=== PATIENT | male | born 1990 | race American Indian/Alaskan Native ===

== ENCOUNTER 2021-04-02 11:09 | Emergency (ER) | payer SELFPAY ==
[2021-04-02 11:34] VITALS: BP 124/66
--- NOTE | 2021-04-02 12:12 | XRay Report ---
CHEST 2 VIEWS INDICATION: Chest Pain. COMPARISON: none FINDINGS: Support devices: None. Heart: Within normal limits. Lungs/pleura: No acute air space or interstitial disease. No pneumothorax. Additional findings: None. IMPRESSION: No acute findings. Signer Name: Panchito Nichole Jr, MD Signed: 04/02/2021 12:07 PM Workstation Name: [id number]
[2021-04-02 13:12] LABS: Basophils % (Auto) 0.6 % (0.0-1.8); Eosinophils # (Auto) 0.1 K/mm3 (0.0-0.4); Eosinophils % (Auto) 1.2 % (0.0-4.3); Hematocrit 40.1 % (35.5-45.6); Hemoglobin 13.4 gm/dl (11.8-15.2); Lymphocytes # (Auto) 2.2 K/mm3 (1.2-5.4); Mean Corpuscular HGB Conc 33 % (32-34); Mean Corpuscular Volume 91 fl (84-94); Monocytes # (Auto) 0.6 K/mm3 (0.0-0.8); Monocytes % (Auto) 10.9 % (0.0-7.3); Platelet Count 167 K/mm3 (140-440); Red Blood Count 4.42 M/mm3 (3.65-5.03); Red Cell Distribution Width 13.5 % (13.2-15.2)
[2021-04-02 13:29] LABS: INR 0.92 (0.87-1.13); Partial Thromboplastin Time 27.6 Sec. (24.2-36.6)
[2021-04-02 13:36] LABS: Alanine Aminotransferase 12 units/L (7-56); Albumin 4.3 g/dL (3.9-5); BUN/Creatinine Ratio 5; Blood Urea Nitrogen 7 mg/dL (9-20); Calcium 8.9 mg/dL (8.4-10.2); Hemolysis Index 112
--- NOTE | 2021-04-02 14:04 | Emergency Department Report ---
ED Chest Pain HPI - General Chief Complaint: Chest Pain Stated Complaint: CHEST PAIN Time Seen by Provider: 04/02/21 11:33 Source: patient Mode of arrival: Ambulatory Limitations: No Limitations - History of Present Illness Initial Comments: This is a 30-year-old male nontoxic, well nourished in appearance, no acute signs of distress presents to the ED with c/o of intermittent right sided chest pain x2 weeks. Currently patient denies any symptoms or complaints. Patient denies any radiation of pain. Patient describes pain as aching intermittently and worse with movement. Patient denies any upper respiratory symptoms. Patient denies any shortness of breath, hemoptysis, fever, chills, nausea, vomiting, headache, stiff neck, numbness, tingling, abdominal pain. Patient denies pleuritic chest pain. Patient denies any recent travels or long car rides. Patient denies any recent surgeries or any sick contacts. Patient denies any drug allergies or significant past medical history. Patient states has is Covid vaccine MD Complaint: chest pain -: week(s) Pain Location: right chest Pain Radiation: none Severity: mild Severity scale (0 -10): 3 Quality: aching Consistency: intermittent, now resolved Improves With: rest Worsens With: movement re: denies: nausea, vomting, diaphoresis, dyspnea, sense of impending doom Other Symptoms: denies: cough, fever, syncope, rash, acid taste in mouth, leg swelling, palpitations, burping Treatments Prior to Arrival: none Aspirin use within the Past 7 Days: (0) No - Related Data Allergies Allergy/AdvReac Type Severity Reaction Status Date / Time No Known Allergies Allergy Unverified 04/02/21 11:27 Heart Score - HEART Score History: Slightly suspicious EKG: Normal Age: < 45 Risk factors: No known risk factors Troponin: < normal limit HEART Score: 0 - EKG Read Time Time EKG Completed: 11:38 EKG Read Time: 11:42 (read by Nica Chen ) - Critical Actions Critical Actions: 0-3 pts:0.9-1.7%risk of adverse cardiac event.Candidate for discharge ED Review of Systems ROS: Stated complaint: CHEST PAIN Other details as noted in HPI Comment: All other systems reviewed and negative Constitutional: denies: chills, fever Eyes: denies: eye pain, eye discharge, vision change ENT: denies: ear pain, throat pain Respiratory: denies: cough, shortness of breath, wheezing Cardiovascular: chest pain. denies: palpitations, dyspnea on exertion, orthopnea, edema, syncope, paroxysmal nocturnal dyspnea Endocrine: no symptoms reported Gastrointestinal: denies: abdominal pain, nausea, diarrhea Genitourinary: denies: urgency, dysuria Musculoskeletal: denies: back pain, joint swelling, arthralgia Skin: denies: rash, lesions Neurological: denies: headache, weakness, paresthesias Psychiatric: denies: anxiety, depression Hematological/Lymphatic: denies: easy bleeding, easy bruising ED Past Medical Hx - Past Medical History Previous Medical History?: No - Surgical History Past Surgical History?: No ED Physical Exam - General Limitations: No Limitations General appearance: alert, in no apparent distress - Head Head exam: Present: atraumatic, normocephalic - Eye Eye exam: Present: normal appearance - Neck Neck exam: Present: normal inspection, full ROM. Absent: lymphadenopathy - Respiratory Respiratory exam: Present: normal lung sounds bilaterally. Absent: respiratory distress, wheezes, rales, rhonchi, stridor, chest wall tenderness, accessory muscle use, decreased breath sounds, prolonged expiratory - Cardiovascular Cardiovascular Exam: Present: regular rate, normal rhythm, normal heart sounds. Absent: bradycardia, tachycardia, irregular rhythm, systolic murmur, diastolic murmur, rubs, gallop - GI/Abdominal GI/Abdominal exam: Present: soft, normal bowel sounds. Absent: distended, tenderness, guarding, rebound, rigid, diminished bowel sounds - Extremities Exam Extremities exam: Present: normal inspection, full ROM, normal capillary refill. Absent: tenderness, pedal edema, joint swelling - Back Exam Back exam: Present: normal inspection, full ROM. Absent: tenderness, CVA tenderness (R), CVA tenderness (L), muscle spasm, paraspinal tenderness, vertebral tenderness, rash noted - Neurological Exam Neurological exam: Present: alert, oriented X3, normal gait - Psychiatric Psychiatric exam: Present: normal affect, normal mood - Skin Skin exam: Present: warm, dry, intact, normal color. Absent: rash ED Course Vital Signs 04/02/21 11:33 Temperature 99.2 F Pulse Rate 83 Respiratory 20 Rate Blood Pressure 124/66 O2 Sat by Pulse 96 Oximetry - Reevaluation(s) Reevaluation #1: 08/23/21 14:05 Patient is speaking in full sentences with no signs of distress noted. SHADE score - Shade Score Age > 65: (0) No Aspirin use within the Past 7 Days: (0) No 3 or more CAD Risk Factors: (0) No 2 or more Angina events in past 24 hrs: (0) No Known CAD with more than 50% Stenosis: (0) No Elevated Cardiac Markers: (0) No ST Deviation Greater than 0.5mm: (0) No SHADE Score: 0 ED Medical Decision Making - Lab Data Result diagrams: 04/02/21 12:56 04/02/21 12:56 Lab Results 04/02/21 04/02/21 04/02/21 Range/Units 12:56 12:56 12:56 WBC 5.5 (4.5-11.0) K/mm3 RBC 4.42 (3.65-5.03) M/mm3 Hgb 13.4 (11.8-15.2) gm/dl Hct 40.1 (35.5-45.6) % MCV 91 (84-94) fl MCH 30 (28-32) pg MCHC 33 (32-34) % RDW 13.5 (13.2-15.2) % Plt Count 167 (140-440) K/mm3 Lymph % (Auto) 40.0 H (13.4-35.0) % Meagher % (Auto) 10.9 H (0.0-7.3) % Eos % (Auto) 1.2 (0.0-4.3) % Baso % (Auto) 0.6 (0.0-1.8) % Lymph # (Auto) 2.2 (1.2-5.4) K/mm3 Meagher # (Auto) 0.6 (0.0-0.8) K/mm3 Eos # (Auto) 0.1 (0.0-0.4) K/mm3 Baso # (Auto) 0.0 (0.0-0.1) K/mm3 Seg Neutrophils % 47.3 (40.0-70.0) % Seg Neutrophils # 2.6 (1.8-7.7) K/mm3 PT 12.9 (12.2-14.9) Sec. INR 0.92 (0.87-1.13) APTT 27.6 (24.2-36.6) Sec. Sodium 139 (137-145) mmol/L Potassium 4.6 (3.6-5.0) mmol/L Chloride 104.0 (98-107) mmol/L Carbon Dioxide 24 (22-30) mmol/L Anion Gap 16 mmol/L BUN 7 L (9-20) mg/dL Creatinine 1.3 (0.8-1.3) mg/dL Estimated GFR > 60 ml/min BUN/Creatinine Ratio 5 % Glucose 88 (75-100) mg/dL Calcium 8.9 (8.4-10.2) mg/dL Total Bilirubin 0.50 (0.1-1.2) mg/dL AST 22 (5-40) units/L ALT 12 (7-56) units/L Alkaline Phosphatase 72 (35-129) units/L Troponin T < 0.010 (0.00-0.029) ng/mL Total Protein 7.4 (6.3-8.2) g/dL Albumin 4.3 (3.9-5) g/dL Albumin/Globulin Ratio 1.4 % // Range/Units 14:55 WBC (4.5-11.0) K/mm3 RBC (3.65-5.03) M/mm3 Hgb (11.8-15.2) gm/dl Hct (35.5-45.6) % MCV (84-94) fl MCH (28-32) pg MCHC (32-34) % RDW (13.2-15.2) % Plt Count (140-440) K/mm3 Lymph % (Auto) (13.4-35.0) % Meagher % (Auto) (0.0-7.3) % Eos % (Auto) (0.0-4.3) % Baso % (Auto) (0.0-1.8) % Lymph # (Auto) (1.2-5.4) K/mm3 Meagher # (Auto) (0.0-0.8) K/mm3 Eos # (Auto) (0.0-0.4) K/mm3 Baso # (Auto) (0.0-0.1) K/mm3 Seg Neutrophils % (40.0-70.0) % Seg Neutrophils # (1.8-7.7) K/mm3 PT (12.2-14.9) Sec. INR (0.87-1.13) APTT (24.2-36.6) Sec. Sodium (137-145) mmol/L Potassium (3.6-5.0) mmol/L Chloride (98-107) mmol/L Carbon Dioxide (22-30) mmol/L Anion Gap mmol/L BUN (9-20) mg/dL Creatinine (0.8-1.3) mg/dL Estimated GFR ml/min BUN/Creatinine Ratio % Glucose (75-100) mg/dL Calcium (8.4-10.2) mg/dL Total Bilirubin (0.1-1.2) mg/dL AST (5-40) units/L ALT (7-56) units/L Alkaline Phosphatase (35-129) units/L Troponin T < 0.010 (0.00-0.029) ng/mL Total Protein (6.3-8.2) g/dL Albumin (3.9-5) g/dL Albumin/Globulin Ratio % - EKG Data 04/02/21 11:38 Sinus bradycardia at [address] or T wave abnormalities. Reviewed and signed by . 04/02/21 16:06 repeat EKG Sinus bradycardia at [address] or T wave abnormalities. Reviewed and signed by . - Radiology Data [facility] [address] [id number] XRay Report Signed Patient: CAMRON ESTRADA MR#: [id number] : 1990 Acct:[id number] Age/Sex: 30 / M ADM Date: 04/02/21 Loc: ED Attending Dr: Ordering Physician: CRISTOPHER DEVLIN NP Date of Service: 04/02/21 Procedure(s): XR chest routine 2V Accession Number(s): [id number] cc: CRISTOPHER DEVLIN NP Fluoro Time In Minutes: CHEST 2 VIEWS INDICATION: Chest Pain. COMPARISON: none FINDINGS: Support devices: None. Heart: Within normal limits. Lungs/pleura: No acute air space or interstitial disease. No pneumothorax. Additional findings: None. IMPRESSION: No acute findings. Signer Name: Panchito Nichole Jr, MD Signed: 04/02/2021 12:07 PM Workstation Name: [id number] Transcribed By: TTR Dictated By: PANCHITO NICHOLE JR, MD Electronically Authenticated By: PANCHITO NICHOLE JR, MD Signed Date/Time: 04/02/211206 DD/ 06 TD/TT: - Medical Decision Making This is a 30-year-old male that presents with unspecific chest pain. Patient is stable and was examined by me. SHADE and HEART score 0 pints. PERC score for DVT/SVT/PE 0 points. EKG normal sinus rhythm with no significant changes in ST. Chest xray dictated by the radiologist. PAtient is notified of the Xray report with no questions noted. Labs within normal limits. Negative troponin x2. Nettie ent was instructed to Follow-up with a primary care/r d intern doctor in 2 days or if symptoms worsen and continue return to emergency room as soon as possible. At time of discharge, the patient does not seem toxic or ill in appearance. No acute signs of distress noted. Patient agrees to discharge treatment plan of care. No further questions noted by the patient. Critical care attestation.: If time is entered above; I have spent that time in minutes in the direct care of this critically ill patient, excluding procedure time. ED Disposition Clinical Impression: Chest pain, unspecified Qualifiers: Chest pain type: unspecified Qualified Code(s): R07.9 - Chest pain, unspecified Disposition: 01 HOME / SELF CARE / HOMELESS Is pt being admited?: No Does the pt Need Aspirin: No Condition: Stable Instructions: Nonspecific Chest Pain, Adult Additional Instructions: Follow-up with a r d intern doctor in 2 days or if symptoms worsen and continue return to emergency room as soon as possible. Referrals: PRIMARY CAREMD [Referring] - 3-5 Days BRENDEN BATISTA MD [Staff Physician] - 3-5 Days ELLIOT PATTON MD [Staff Physician] - 04/04/21 Forms: Work/School Release Form(ED) Time of Disposition: 16:00
--- NOTE | 2021-04-03 10:04 | Electrocardiograph Report ---
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
--- NOTE | 2021-04-03 10:19 | Electrocardiograph Report ---
[facility] Test Date: 2021-04-02 Test Time: 16:02:43 Pat Name: CAMRON ESTRADA Department: Room: Gender: Industrial Truck Mechanic: NADINE : 1990 Requested By: CRISTOPHER DEVLIN Order Number: [id number] Reading MD: Farhan Gr Measurements Intervals [place] Rate: 49 P: 53 ME: 180 QRS: 63 QRSD: 100 T: 45 QT: 425 QTc: 382 Interpretive Statements Sinus bradycardia Compared to ECG 04/02/2021 11:38:55 No significant changes Electronically Signed On 04-03-2021 10:19:35 EDT by Farhan Gr
== END 2021-04-03 04:41 | disposition home or self-care (01) ==
LOC: ED 11:09
DX: R07.9 Chest pain, unspecified (principal); Z79.899 Other long term (current) drug therapy
CPT/HCPCS: 36415; 71046; 80053; 84484; 85025; 85610; 85730; 93005